=== PATIENT | female | born 2000 | race Caucasian/White ===

== ENCOUNTER 2024-09-01 15:45 | Emergency (ER) | payer SELFPAY ==
[~2024-09-01] VITALS: Ht 152.4 cm; Wt 190.0 kg
[2024-09-01 15:55] VITALS: BP 157/70
[2024-09-01 16:00] VITALS: BP 145/82
[2024-09-01 16:15] VITALS: BP 150/87
[2024-09-01 16:30] VITALS: BP 121/72
[2024-09-01 16:45] VITALS: BP 139/89
[2024-09-01 16:47] VITALS: BP 139/89
[2024-09-01] MEDS ORDERED: TAM75CAP PO (17:27)
== END 2024-09-01 17:42 | disposition home or self-care (01) | DRG 195 ==
LOC: ED 15:45
DX: J10.1 Influenza due to other identified influenza virus with other respiratory manifestations (principal); Z20.822 Contact with and (suspected) exposure to COVID-19